=== PATIENT | male | born 1935 | race Caucasian/White ===

== ENCOUNTER → 2019-05-04 10:38 | Outpatient (CLI) | payer MEDICARE, BC, SELFPAY ==
--- NOTE | 2019-05-04 | DI.RAD.S_ITS ---
PROCEDURE: FL BARIUM SWALLOW INDICATIONS: COUGH COMPARISON: None. FINDINGS: Function: There is generally normal esophageal peristalsis with only a mild degree of tertiary contractions within the distal esophagus. There was minimal elicited gastroesophageal reflux. There is normal transit of a calibrated barium tablet through the esophagus into the stomach. Morphology: Air-contrast images demonstrate normal mucosal morphology. Single contrast views show no esophageal strictures, extrinsic mass effects, or diverticula. Limited images of the stomach demonstrate normal appearance. IMPRESSION: The degree of gastroesophageal reflux currently present at time of this examination is minimal. The patient reported prior fundoplication and there is no evidence for wrap dehiscence. Note is made of a mild degree of episodic tertiary contractions within the distal esophagus, but no esophageal stricture or mass lesion is found. Dictated by: Luis Alfredo Hamlin M.D. on 05/04/2019 at 11:39 Approved by: Luis Alfredo Hamlin M.D. on 05/04/2019 at 11:40
== END ==
PROVIDERS: PCP Internal Medicine; Visit Provider Otolaryngology
DX: R05 Cough (principal); K21.9 Gastro-esophageal reflux disease without esophagitis
CPT/HCPCS: 74220

== ENCOUNTER → 2020-12-24 11:27 | Outpatient (CLI) | payer MEDICARE, BC, SELFPAY ==
[2020-12-24 13:09] LABS: COVID19 -Nasal RAPID Negative (Negative)
== END ==
PROVIDERS: PCP Internal Medicine; Visit Provider Physician Assistant
DX: Z01.812 Encounter for preprocedural laboratory examination (principal); Z20.822 Contact with and (suspected) exposure to COVID-19
CPT/HCPCS: 87635; C9803

== ENCOUNTER → 2020-12-26 10:01 | Outpatient (CLI) | payer MEDICARE, BC, SELFPAY ==
--- NOTE | 2020-12-26 15:04 | P.PCN_ITS ---
Cardiac Stress Test Report Referral & Results Date Patient Seen: 12/26/20 Time Patient Seen: 15:04 Indication: Chest pain Rest ECG: Atrial fibrillation Procedure Note: After Lexiscan injection, had minimal dyspnea 2/10 sternal chest pain 2:41 mins post Lexiscan injection which increased to 4/10 at 3:00 post Lexiscan injection; chest pain resolved 4:01 into recovery wi th no ECG changes No ectopy Impression: Positive Lexiscan stress test Nuclear images pending Please note: Actual ECG tracings can be found in the PACS system.
--- NOTE | 2020-12-26 19:36 | DI.NM.S_ITS ---
DATE OF SERVICE: 12/26/2020 PROCEDURE: Pharmacological perfusion study. INDICATIONS: Atrial fibrillation, chest pain with known history of coronary artery disease status post LAD and PDA stent in the past. RADIOPHARMACEUTICAL: 27.0 millicurie technetium-99m Myoview IV was injected at stress and 24.3 millicurie technetium-99m Myoview IV was injected at rest. CARDIAC STRESS: The patient underwent IV Lexiscan perfusion study under the supervision of an attending staff as per standard protocol. The patient remained hemodynamically stable. During Lexiscan, patient felt dyspnea and chest discomfort, which got resolved in 4 minutes in recovery. Baseline rhythm was atrial fibrillation with low-voltage complexes with some nonspecific ST-T changes. During stress, patient remained in AFib without any new convincing ischemic changes. There were no new significant arrhythmias. RAW DATA: There is increased subdiaphragmatic activity. GATED STUDY: Stress LV ejection fraction is 72 percent without any obvious wall motion abnormalities. Resting end-diastolic volume 98 mL. TID ratio 0.95, which is within normal limits. Lung/heart ratio 0.33, which is within normal limits. MYOCARDIAL PERFUSION: Stress supine images revealed minimally decreased perfusion of the basal inferolateral wall, which got resolved during prone images. No convincing ischemia or infarction pattern seen. CONCLUSION: This is a normal myocardial perfusion study with evidence of diaphragmatic tissue attenuation artifact which got resolved during prone images. Preserved left ventricular function. Baseline atrial fibrillation with controlled ventricular rate. Overall, this is a low-risk myocardial perfusion study. Lan Gutiérrez - Allan/nakul doc#: [id number]/job#: [id number] dd: 12/26/2020 17:16:00 dt: 12/26/2020 18:11:00 DICTATING MD/COPIES TO: Zenaida Hernandes MD COPIES MNE: NIGEL;
== END ==
PROVIDERS: PCP Internal Medicine; Referring Provider Internal Medicine; Visit Provider Internal Medicine
DX: R07.9 Chest pain, unspecified (principal); I48.91 Unspecified atrial fibrillation
CPT/HCPCS: 78452; 93017; A9502; J2785

== ENCOUNTER → 2022-04-02 11:27 | Outpatient (CLI) | payer MEDICARE, BC, SELFPAY ==
--- NOTE | 2022-04-02 | DI.CT.S_ITS ---
PROCEDURE: CT UE LT WO CON INDICATIONS: Pain in left shoulder TECHNIQUE: Noncontrast 1-1.5 mm thick sections acquired from the acromioclavicular joint to the inferior scapula, with coronal and sagittal reformatting. COMPARISON: [facility], CR, XR SHOULDER 2+ VIEWS LEFT, 10/30/2020, 9:10. [facility], CR, XR SHOULDER 2+ VIEWS LEFT, 03/26/2022, 13:15. FINDINGS: Image quality: Excellent. Bones: There is moderate to severe glenohumeral joint osteoarthritic changes with near complete loss of joint space, extensive subchondral sclerosis and cyst formation as well as prominent marginal osteophyte formation. Mild glenohumeral joint osteoarthritic changes are seen with joint space narrowing and subchondral sclerosis. No fracture or dislocation. No suspicious intraosseous lesion. Visualized left upper to mid ribs are intact. Visualized thoracic spine vertebral bodies show no acute compression fractures. Soft tissues: Mild supraspinatus muscle atrophy is noted on sagittal images. There is no full-thickness rotator cuff tendon rupture. No intra-articular loose bodies or abnormal soft tissue calcifications. No left axillary lymphadenopathy is seen. Visualized left lung field is clear. Heart size is enlarged, no pericardial effusion. Moderate atherosclerotic calcifications are seen in coronary vessels. IMPRESSION: 1. 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 No fracture or dislocation. No suspicious intraosseous lesion. 2. No full-thickness rotator cuff tendon rupture. No significant joint effusion or intra-articular loose bodies. No abnormal soft tissue calcifications. Mild supraspinatus muscle atrophy. Dictated by: Gerson Padilla M.D. on 04/03/2022 at 23:00 Approved by: Gerson Padilla M.D. on 04/03/2022 at 23:04
== END ==
PROVIDERS: PCP Internal Medicine; Referring Provider Orthopaedic Surgery; Visit Provider Orthopaedic Surgery
DX: M19.012 Primary osteoarthritis, left shoulder (principal); M25.512 Pain in left shoulder
CPT/HCPCS: 73200

== ENCOUNTER → 2022-05-31 10:34 | Outpatient (CLI) | payer MEDICARE, BC, SELFPAY ==
[2022-05-31 11:53] LABS: Add Manual Diff / Slide Review NO; Basophils Absolute Auto 0 /uL (0-100); Basophils Percent Auto 0.6 % (0-2); Eosinophils Absolute Auto 200 /uL (0-450); Eosinophils Percent Auto 3.2 % (2-4); Hemoglobin 12.5 g/dL (13.5-17.5); Lymphocytes Absolute Auto 900 /uL (1100-4500); Mean Corpuscular HGB Conc 34.7 % (30-36); Mean Corpuscular Hemoglobin 36.1 PG (26-34); Mean Corpuscular Volume 104.2 fL (80-100); Monocytes Absolute Auto 800 /uL (0-900); Monocytes Percent Auto 11.2 % (3-14); Neutrophils Absolute Auto 4800 /uL (1500-7000); Platelet Count 202 X10^3/uL (150-400); Red Blood Cell Count 3.45 X10^6/uL (4.5-5.9); Red Cell Distribution Width 14.1 % (11.6-14.8); White Blood Cell Count 6.7 X10^3/uL (4.5-11.0)
[2022-05-31 12:09] LABS: BUN Creatinine Ratio 25.7 (6-22); Blood Urea Nitrogen 27 mg/dL (9-20); Calcium 8.8 mg/dL (8.4-10.2); Carbon Dioxide 29 mmol/L (22-32); Chloride 105 mmol/L (98-107); Estimated Glomerular Filt Rate > 60 mL/min (>60); Glucose 71 mg/dL (80-110); HEMOLYSIS < 15 (0-50); Potassium 4.2 mmol/L (3.4-5.1); Sodium 140 mmol/L (137-145)
== END ==
PROVIDERS: PCP Internal Medicine; Referring Provider Orthopaedic Surgery; Visit Provider Orthopaedic Surgery
DX: Z01.818 Encounter for other preprocedural examination (principal); Z01.812 Encounter for preprocedural laboratory examination
CPT/HCPCS: 36415; 80048; 85025; 93005

== ENCOUNTER → 2022-09-13 13:44 | Outpatient (CLI) | payer MEDICARE, BC, SELFPAY ==
[2022-09-13 17:32] LABS: COVID19 -Nasal RAPID Negative (Negative)
== END ==
PROVIDERS: PCP Internal Medicine; Referring Provider Orthopaedic Surgery; Visit Provider Orthopaedic Surgery
DX: Z20.822 Contact with and (suspected) exposure to COVID-19 (principal)
CPT/HCPCS: 87635; C9803

== ENCOUNTER 2022-09-15 09:19 | Inpatient (IN) | payer MEDICARE, BC, SELFPAY ==
[2022-09-14 08:16] VITALS: BMI 25.7
[2022-09-15] VITALS (15 sets, daily range): BP systolic 107–164; BP diastolic 65–103; PULSE 14–100; RESP 12–18; TEMP 35.9–36.7; O2SAT 92–99; BMI 25.7
--- NOTE | 2022-09-15 06:00 | DI.RAD.S_ITS ---
PROCEDURE: XR SHOULDER LT MIN 2V INDICATIONS: prosthesis placement TECHNIQUE: 1 views of the shoulder were acquired. COMPARISON: None. FINDINGS: Bones: No fractures or dislocations. No suspicious bony lesions. Visualized ribs appear intact. Left shoulder arthroplasty is present. Postsurgical changes are present. Hardware is intact Soft tissues: No suspicious soft tissue calcifications. IMPRESSION: Left shoulder arthroplasty changes. Dictated by: Concha Wei M.D. on 09/15/2022 at 14:11 Approved by: Concha Wei M.D. on 09/15/2022 at 14:11
[2022-09-15] MEDS: CELECOXIB 200 MG CAPSULE PO (10:08)
[2022-09-15] MEDS: PREGABALIN 75 MG CAPSULE PO (10:08)
--- NOTE | 2022-09-15 10:08 | PM.PREOP ---
Pre-operative Note COVID-19 COVID-19 status: Negative Result date/Date tested (Pos, Neg/Pending): 09/13/22 Interval Note History & Physical reviewed/Exam performed by Physician: Yes Changes to H&P: No
[2022-09-15] MEDS: ACETAMINOPHEN 325 MG TABLET 975 MG PO (10:09)
[2022-09-15] MEDS: LACTATED RINGERS 1,000 ML 84 ML IV ×2 (10:11→12:20)
--- NOTE | 2022-09-15 10:46 | SUR.PREOP ---
Time Out- 1027 Block start time [1028] . Monitoring initiated and maintained throughout procedure. Patient remained stable throughout procedure, no adverse reactions noted. Block end time [1040].
[2022-09-15] MEDS: CEFAZOLIN 2 GM/100 ML PREMIX 100 ML IV ×2 (10:47→19:11)
--- NOTE | 2022-09-15 11:17 | SUR.OPER ---
Beach chair with Tash/Yulia shoulder positioner. Lower body on padded OR bed. Head in foam padded head cradle, secured with straps. Non-operative arm secured <90 degrees abduction. Pillow under knees. Safety belt at thigh. Gelpads underneath pt's buttocks and heels
[2022-09-15] MEDS: TRANEXAMIC ACID 1,000 MG VIAL 1000 MG INJ ×2 (11:28→12:30)
[2022-09-15] MEDS: BUPIVACAINE 0.25% (PF) 30 ML, EPINEPHrine 0.3 MG INJ (12:30)
--- NOTE | 2022-09-15 12:50 | PM.OP.1 ---
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 The CT scan has shown severe erosion of the glenoid, necessitating reverse total shoulder replacement. Non-operative management has failed and the patient has requested total shoulder replacement. The risks, benefits and alternatives to surgery were discussed with the patient prior to proceeding. Risks discussed included, but were not limited to, failure to relieve pain, stiffness, infection, nerve damage, deep venous thrombosis, pulmonary embolism, stroke, coma, heart attack, permanent paralysis and , as well as the potential need for eventual revision of the prosthetic. Surgeon: Vincenzo Murphy Privacy Officer: Marques Ta Click Yes if Unassisted: No Anesthesia Type: General, Peripheral nerve block and Local Operative Notes Findings: Severe osteoarthritis of the left shoulder with significant posterior superior erosion of the glenoid Closure Type: primary Specimen(s): none sent Prosthetic devices, grafts, tissues, transplants, or devices: Implants used in this procedure manufactured by the [employer] and included a [employer] total shoulder system with a 24 mm base plate with a 20 degree full augment and a 30 mm post extension, a single 32 mm nonlocking screw was placed in the inferior hole. Three locking screws measuring 24, 24 and 20 mm were placed in the 3 remaining holes. There was a 36 mm +4 lateralized/24 glenosphere with a locking screw. There was a size 10 humeral stem with a 36 neutral cup and a 36+ 3 liner. Applied: implant(s) Estimated Blood Loss (mL): 200 Blood products transfused: none Procedure in detail: The patient was seen in the preoperative area where they identified the left shoulder as the operative site and this was marked with my initials. They received preoperative antibiotics and underwent the induction of an interscalene block. They were taken to the operating room and placed on the operating room table in a supine position with the underwent the induction of a general anesthetic. There were then repositioned in the ?beach chair? position using a dedicated positioner. All pressure points were well padded. The knees were slightly bent to prevent tension on the sciatic nerves. A timekeeper supervisor-out was performed. The left arm was prepared from the fingertips to the base of the neck with ChloraPrep in the usual fashion and draped through sterile drapes. An approximately 15 cm incision was created starting at the clavicle just above the coracoid and going to the deltoid insertion. The deltopectoral interval was used to access the shoulder taking the vein to the medial side. The vein was unfortunately injured during the case and cauterized. The upper 1 cm of the pectoralis major was released. The biceps tendon was identified and used as a guide to releasing the remaining subscapularis. The biceps itself was tenodesed over the pectoralis tendon using a suture. The subscapularis was tagged for later repair. The shoulder was dislocated and a proximal humeral osteotomy performed using an intramedullary guide. A proximal humeral protector was then placed. Retractors were placed access the glenoid. A 360 degree release was performed of the remaining subscapularis with care being taken to protect the axillary nerve. The soft tissues were removed circumferentially around the glenoid. The guide was used to drill the guide hole in the center of the inferior glenoid. The 20 degree angled Reamer was used over the guide pin. The trial glenoid was applied and appeared to have good support. The glenoid was marked to allow appropriate orientation of the augment. The glenoid prosthetic was assembled on the back table and impacted into position. The inferior hole was filled with a nonlocking screw to provide compression. The remaining peripheral locking screws were then placed through the appropriate guide. A trial glenoid head was applied. We then turned our attention to the humerus. The proximal humeral protector was removed. Broaching was then performed beginning with a small broach and working up until rotational stability was obtained. The guide for the proximal metaphyseal reamer was then applied and the metaphysis was reamed appropriately. The trial metaphyseal portion of the body was then applied to the broach. Trial reductions were performed and the size of the glenoid head and the cup were optimized. Stability was checked in maximal internal and external rotation and range of motion was checked to allow access to the top of the head, internal rotation to an excess of 50? in the ?scarecrow position? and the ability to reach the groin. The appropriate final prosthetic components were then opened. The glenoid head was impacted into position and checked for rotational and axial stability before placing the set screw. The humeral prosthetic was then impacted into position. The humeral cup was placed. The joint was relocated and irrigated. The subscapularis was repaired to the lesser tuberosity using 2. Ethibond sutures. The deltopectoral interval was reapproximated with 0 Vicryl. Subcutaneous layer was closed with interrupted 3-0 Vicryl and skin with a running 3 0 V lock suture and Dermabond. Subcutaneous tissues were then infiltrated with 12 mL of 0.25% Marcaine for postoperative pain control. An Aquacel Ag dressing was applied and the patient's arm was placed in a sling. The patient was then transferred to the recovery room in good condition having tolerated the procedure well. The assistance of a skilled special event assistant was necessary to provide positioning, retraction to protect vital structures and exposure during this case. A reverse total shoulder is not an operation that can be performed without the services of a skilled special event assistant. The presence of Dr. Cely courtney was necessary for the duration of the case. Complications: none Post-operative Condition: stable Disposition: PACU Plan for aftercare: The patient will be allowed to do pendulum exercises and use his hand in front of his body below shoulder level to lift 1-2 lb. He will start in physical therapy in 6 weeks. He will be admitted to the hospital overnight and likely discharge tomorrow.
--- NOTE | 2022-09-15 12:57 | SUR.PHASEI ---
Received to PACU after general anesthesia. Oral airwayremoved by Dr Hurst on arrival. Airway patent, self maintained. Report from RACHELLE Gonzales and Dr Hurst.
[2022-09-15] MEDS: HYDROCODONE/ACET 5/325 TABLET 1 TAB PO (13:35)
[2022-09-15] MEDS: LACTATED RINGERS 1,000 ML 100 ML IV (15:30)
--- NOTE | 2022-09-15 16:00 | PT.IIE ---
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 Asthma BCC (basal cell carcinoma) (~06/2022) Easy bruisability Enlarged prostate Hearing impaired HLD (hyperlipidemia) HTN (hypertension) Hypothyroid IBS (irritable bowel syndrome) Knee pain Osteoarthritis Presence of Watchman left atrial appendage closure device Rheumatic fever Shingles outbreak (06/15/22) TIA (transient ischemic attack) Physical Therapy Inpatient Evaluation/Re-Eval M1 PT/OT-IP Prior Functional Status Start: 09/15/22 17:02 Freq: NEEDED Status: Active Protocol: Document 09/15/22 16:00 AB (Rec: 09/15/22 17:17 AB [id number]) Medical Review Prior Functional Status Medical History Reviewed Yes Communication able to make needs known Mobility and Gait pt stated that he is modified independent with all mobilities and ambulation without AD indoors but uses a SPC for outdoor mobility Social History Household Members spouse Living Arrangements Apartment/Condo Number of Floors (Floors) Two Floors Number of Stairs To Enter/Railing? 4 steps R rail to enter the house and then has a chair lift to get to main living area of the house Home Environment Standard Height Toilet,Walk in Shower,Built-In Shower Seat Home Equipment Straight Cane,Hand Held Shower ,Grab Bars In Shower Additional Social History Comment spouse is limited to assistance she can provide the pt: has decrease vision and has back problems M2 PT-IP Current Condition Start: 09/15/22 17:02 Freq: NEEDED Status: Active Protocol: Document 09/15/22 16:00 AB (Rec: 09/15/22 17:17 AB [id number]) Physical Therapy Current Condition Current Condition Evaluation Date 09/15/22 Treatment Diagnosis s/p L TSA reverse; difficulty in walking Onset Date 09/15/22 M3 PT-IP Subjective Start: 09/15/22 17:02 Freq: NEEDED Status: Active Protocol: Document 09/15/22 16:00 AB (Rec: 09/15/22 17:17 AB [id number]) Subjective Physical Therapy Visit Type Type Initial Evaluation Visit Start Time 16:00 Visit Stop Time 16:47 Total Visit Minutes 47 Number of DECKHAND SPONGE BOAT Visits 0 Physical Therapy Visit Comments Patient Comments agreeable to do PT Therapy Pain Assessment Pain When Pain Assessed At Rest Pain Present Pain Present Pain Reported Location Left Shoulder Intensity 4 Scale Used Numeric (0 - 10) Pain Management Techniques Distraction,Modification of Treatment,Re-positioning, Timing of Activity with Medications M4 PT-IP Mobility and Gait Start: 09/15/22 17:02 Freq: NEEDED Status: Active Protocol: Document 09/15/22 16:00 AB (Rec: 09/15/22 17:17 [id number]) PT-Bed Mobility Assessment Supine to Sit Supine to Sit Standby Assistance PT-Transfer Assessment Sit to and From Stand Sit to and from Stand Contact Guard Assistance,1 Person Assistance,Use of Upper Extremities Equipment Transfer Assistive Device None,Gait Belt Orthotic/Prosthetic Devices or Brace: Yes Comments Mobility Comments spouse in room with pt. educated pt and spouse regarding shoulder precautions , pendulum, elbow/wrist/hand exercises. pt completed supine to sit SBA . pt can be impulsive and tends to move L shoulder. max A for safety. pt able to sit on EOB SBA. pt requested to use the urinal. CGA for sit to stand and CGA for standing balance without AD while pt uses the urinal. educated spouse on donning/ doffing of sling. completed elbow/wrist/hands exercises. pt still does not have full motor control back on LUE and pendulum held off for now for safety. Spouse don sling on pt with min A from PT and max cues. will need further training. pt ambulated in room without AD CGA with unsteady guarded gait. instructed pt to use SPC and ambulated initially CGA ~ 20 ft but pt is impulsive and has (+) LOB requiring min A for safety. pt sat on EOB. requested to use the urinal again. nurse in room and took over care. caregiver training set up at 930 am with spouse. Gait Assessment Gait Gait Assistance Required: Contact Guard Assist,Minimum Assistance Distance (Feet) 20 Able to Maintain Weight Bearing Status Yes During Gait Assistive Devices Assistive Device None,Gait Belt,Straight Cane Orthotic/Prosthetic Devices or Brace: Yes Gait Deviations General Gait Pattern Ataxic,Decreased Stride Length ,Decreased Feet Clearance,Step -to Gait Factors Limiting Gait Function Factors Limiting Gait Function Decreased Activity Tolerance, Decreased Sensation,Decreased Strength,Difficulty Following Directions,Limited Range of Motion,Pain,Poor Balance,Poor Safety Awareness PT-Balance Assessment Sitting Balance and Reactions Static Sitting Balance Ability Good Dynamic Sitting Balance Ability Good Standing Balance and Reactions Static Standing Balance Ability Fair Dynamic Standing Balance Ability Fair Device Used without AD M5 PT-IP Objective Assessments Start: 09/15/22 17:02 Freq: NEEDED Status: Active Protocol: Document 09/15/22 16:00 AB (Rec: 09/15/22 17:17 AB [id number]) Orientation Orientation/Cognition Level of Alertness Alert Orientation Name Language Function Ability No Deficits Noted Safety Awareness Decreased Safety Awareness Memory Description Short Term Impaired Gross Range of Motion Lower Extremity ROM Assessment Within Functional Limits Strength Lower Extremity Strength Assessment Within Functional Limits Other Assessments Other Other Assessments pt does not have full motor control back on LUE M6 PT-IP Treatment Start: 09/15/22 17:02 Freq: NEEDED Status: Active Protocol: Document 09/15/22 16:00 AB (Rec: 09/15/22 17:17 AB [id number]) Physical Therapy Treatment Exercises Exercises Elbow Flexion/Extension,Wrist ROM,Hand ROM Education Education Provided Precautions,Weight Bearing Status,Post-Op Packet,Safety Brace Education Donning,[place],Patient, Caregiver M7 PT-IP Assessment and Plan Start: 09/15/22 17:02 Freq: NEEDED Status: Active Protocol: Document 09/15/22 16:00 AB (Rec: 09/15/22 17:17 AB [id number]) PT Summary Assessment and Plan Potential Rehabilitation Potential Fair Status of Condition at Evaluation Evolving Summary Impairments Pain,ROM,Strength,Balance, Coordination,Sensation,Tone, Cognition,Bed Mobility, Transfers,Gait,Activity Tolerance Assessment Summary PT requiring CGA to min A with mobility. caregiver training initiated but requires further training. caregiver training set up at 930 am tomorrow. pt also needs to complete stair climbing prior to d/c. will continue to assess progress. Goals Bed Mobility Goal Independent Transfer Goal Independent,Cane Gait Goal Independent,Cane Gait Distance 200 Other Goals improve ambulation without AD 100 ft SBA up/down 4 steps R rail ascending SBA Days to Meet Goals 5 Frequency of Treatment Frequency Of Treatment Twice a Day Treatment Plan Physical Therapy Treatment Plan Bed Mobility Training,Transfer Training,Gait Training, Therapeutic Exercise,Balance Retraining,Post Op Education, Discharge Planning,Hot or Cold Pack,Neuromuscular Re-ed, Coordination Retraining,Manual Therapy Precautions Shoulder Precautions Sling,PROM,Internal Rotation to Body,No External Rotation, No Abduction,Forward Flexion to 90 degrees,Pendulums Other Precautions Per Dr. Murphy note: The patient will be allowed to do pendulum exercises and use his hand in front of his body below shoulder level to lift 1 -2 lb Weight Bearing Status Weight Bearing Status Non-Weight Bearing Allowed Weight Bearing Amount (enter % LUE NWB or #) (%) Recommendations To Nursing Amount of Assist Needed 1 Person Assist Discharge Recommendations PT Discharge Recommendations Home with 02/05 Assist Available,Home Health, Outpatient PT Transportation Needs at Discharge Private Vehicle,Wheelchair/ Cabulance
[2022-09-15] MEDS: OXYCODONE IR 10 MG TABLET PO (16:07)
[2022-09-15] MEDS: TAMSULOSIN 0.4 MG CAPSULE 0.8 MG PO (18:18)
[2022-09-15] MEDS: ACETAMINOPHEN 325 MG TABLET 650 MG PO (18:20)
--- NOTE | 2022-09-15 19:28 | PC.NURSE ---
Pt arrived from PACU, at 1430. A&OX3. Pain well controlled with PRN medications. feeling returned to L hand, shoulder in sling. Aquacel to L shoulder c.d.i PT is voiding and ambulating x1 SBA. PT at bedside reviewing precautions with pt. Continuous monitoring. IVF LR at 100 ml/hr.
[2022-09-15] MEDS: ATORVASTATIN 20 MG TABLET 10 MG PO (20:38)
[2022-09-15] MEDS: METOPROLOL ER 25 MG TABLET 12.5 MG PO (20:38)
[2022-09-15] MEDS: ASPIRIN EC 81 MG TABLET PO (20:38)
[2022-09-15] MEDS: DOCUSATE 100 MG CAPSULE PO (20:38)
[2022-09-15] MEDS: OXYCODONE IR 5 MG TABLET PO (20:39)
--- NOTE | 2022-09-16 00:35 | RT ---
At time of 2129 on 09/15/22, pt was asleep. RT unable to evaluate pt.
[2022-09-16 03:00] VITALS: BP 157/81; PULSE 66; RESP 16; TEMP 36.5; O2SAT 97
[2022-09-16] MEDS: OXYCODONE IR 10 MG TABLET PO (03:04)
[2022-09-16] MEDS: CEFAZOLIN 2 GM/100 ML PREMIX 100 ML IV (03:04)
[2022-09-16] MEDS: ACETAMINOPHEN 325 MG TABLET 650 MG PO ×4 (06:16→23:25)
[2022-09-16] MEDS: PANTOPRAZOLE DR 20 MG TABLET PO (06:16)
[2022-09-16] MEDS: LEVOTHYROXINE 100 MCG TABLET PO (06:16)
[2022-09-16 06:32] LABS: Hematocrit 34.1 % (41-53); Hemoglobin 11.5 g/dL (13.5-17.5)
--- NOTE | 2022-09-16 07:49 | P.DS_ITS ---
History of Present Illness History of Present Illness Date Patient Seen: 09/16/22 Time Patient Seen: 07:50 Chief complaint: OPB Narrative: The history and physical is contained in the chart previously completed note. Please refer to that note for this information. Discharge Providers Provider Date of admission: September 15, 2022 Discharge Date: 09/16/22 Primary care physician: Kurt Sharma MD Consults: 09/15/22 14:29 Consult to Discharge Planning Routine Comment: Consult to Physical Therapy Evaluate & Treat Comment: Physician Instructions: Pendulums only Discharge provider: Vincenzo Murphy MD Summary Hospital Course Discharge Diagnosis: 1. 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 Post hemorrhagic anemia Hospital Course: The patient was admitted to the hospital and taken directly to the operating room on September 15, 2022 where he underwent a left reverse total shoulder repl acement with an augmented glenoid prosthesis due to significant erosion of the glenoid. On postoperative day 1 he was comfortable with good pain control. He did have a mild post hemorrhagic anemia that should resolve with normal diet and the iron he takes routinely. It is anticipated he will be ready to discharge later this morning. Status at Discharge Cognitive/behavioral status at discharge: at baseline, oriented Functional status at discharge: independent ambulation Overall status at discharge: patient is progressing back to baseline Time Spent with Patient Time spent: Less than 30 minutes Exam Vital Signs (past 8 hours): - 09/16/22 03:00 Temperature 97.7 F Pulse Rate 66 Respiratory Rate 16 Blood Pressure 157/81 H Pulse Oximetry 97 Oxygen Flow Rate 0 Oxygen Delivery Method Room Air Oxygen Flow Rate 0 Narrative Exam Narrative: Left shoulder wound is dressed with no significant drainage on the bandage. Light touch is intact in the radial, ulnar, median, muscular cutaneous and axillary nerve distribution. He can extend his thumb, abduct his thumb, abduct his fingers and can fire his biceps and deltoid. 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 Asthma BCC (basal cell carcinoma) (~06/2022) Easy bruisability Enlarged prostate Hearing impaired HLD (hyperlipidemia) HTN (hypertension) Hypothyroid IBS (irritable bowel syndrome) Knee pain Osteoarthritis Presence of Watchman left atrial appendage closure device Rheumatic fever Shingles outbreak (06/15/22) TIA (transient ischemic attack) Surgical History (Updated 06/28/22 @ 10:35 by Maribell Garcia RN) History of Zana fundoplication Hx of heart artery stent Social History household members: spouse Smoking Status: Former smoker alcohol intake: current Discharge Assessment & Plan Assessment and Plan Assessment: Stable postop day 1 after reverse total shoulder replacement for left shoulder osteoarthritis with significant glenoid deformity. He is stable from the standpoint of pain control. He has a mild post hemorrhagic anemia superimposed upon his pre-existing anemia which should be addressed with ongoing use of the iron he takes at baseline. It is anticipated he will be ready for discharge today. Plan of Treatment: Discharge to home with follow-up in my office in 10-14 days. Discharge prescription for oxycodone has been sent to the pharmacy for him. He has been instructed in the use of low-dose aspirin for DVT prophylaxis. He has been instructed to continue his baseline use of Tylenol and anti-inflammatories for pain control. Discharge Plan Discharge Plan Patient Disposition: Home Discharge orders & Medications Discharge Orders: Discharge (Order); Ordered 09/16/22 Ordered By: Vincenzo Murphy Prescriptions: New aspirin 81 mg Tablet,Delayed Release (Dr/Ec) 81 mg PO BID Qty: 84 0RF oxycodone 5 mg Tablet 5 mg PO Q4H PRN (Reason: Pain, Moderate (4-6)) Qty: 40 0RF Continued furosemide 40 mg Tablet 40 mg PO DAILY acetaminophen 500 mg Tablet 1,000 mg PO Q6H PRN (Reason: Pain) ferrous sulfate 325 mg (65 mg iron) Tablet 325 mg PO DAILY naproxen sodium [Aleve] 220 mg Capsule 220 mg PO BID PRN (Reason: Pain) metoprolol succinate 25 mg Tablet Extended Release 24 Hr 12.5 mg PO BEDTIME coenzyme Q10 [Co Q-10] 300 mg capsule 150 mg PO DAILY esomeprazole magnesium [address] for susp in packet 20 mg PO DAILY fluticasone propionate [Allergy Relief (fluticasone)] 50 mcg/actuation spray,suspension 2 spray NASAL DAILY PRN (Reason: Allergies) budesonide 0.5 mg/2 mL suspension for nebulization 2 ml INHALATION DAILY levothyroxine 100 mcg capsule 100 mcg PO DAILY beclomethasone dipropionate [Qvar RediHaler] 80 mcg/actuation HFA aerosol breath activated 1 puff INHALATION BID rosuvastatin [Crestor] 5 mg tablet 5 mg PO QPM tamsulosin 0.4 mg capsule 0.8 mg PO QPM Discontinued aspirin [Adeel Low Dose Aspirin] 81 mg tablet,delayed release (DR/EC) 81 mg PO DAILY Follow up/Referrals: Kurt Sharma MD [Primary Care Provider] - Vincenzo Murphy MD [Physician] - As previously scheduled Diet/Activity/Treatments Diet: Diet as Tolerated and Regular Activity: You may use your left hand in front of your body below shoulder level to lift 1-2 lb maximum. Cold/Heat Therapy: You may apply ice to the left shoulder for 15 minutes every hour as needed for pain control. Skin/Wound/Dressing Care Report to your healthcare provider any signs of infection, such as:: chills, fever, night sweats, increased pain, unusual drainage and unusual redness Dressing: Leave the dressing in place until your postoperative follow-up. You m ay shower with the dressing in place. If the central strip becomes saturated with either water or blood, please call the office to have it evaluated. Visit Report/Discharge Packet Instructions: DI for Shoulder Replacement Stand Alone Forms: Surgery Discharge Discharge Data Primary Care Provider: Kurt Sharma Attending Provider: Vincenzo Murphy Quality VTE Deep Vein Thrombosis/Pulmonary Embolism Present on Admission: No
--- NOTE | 2022-09-16 09:14 | CM.DANOTE ---
Addendum entered by Zandra Martinez R.N. 09/16/22 15:16: DCP Cont: Spoke with PT, pt recommending / assist vs SNF. DCP spoke with family and pt and provided them with the options of going home with daughter assisting and then finding caregivers vs SNF placement. PT wanting to work with pt tomorrow to determine if pt safe enough to go home. DCP to inform RN. DCP sent referral to [facility] and it was determined that he could be accepted on Tuesday if it is deemed necessary. DCP to continue to follow case. Zandra Martinez RN/HUGO Original Note: DCP Assessment: Payor confirmed: Medicare and [facility] PCP confirmed: Kurt Sharma MD Pt is an 87 y.o. M who presented to the hospital for a scheduled rotator cuff surgery with Dr. Murphy. Pt brought up to the AC unit for further evaluation and management of surgical procedure. DCP met with pt this morning to discuss discharge needs. Pt sitting up on side of the bed eating breakfast. DCP introduced herself and role. Pt lives with his spouse, Mine, in a condo with a stair walker, in [place]. Pt states that he is fairly independent at baseline and still drives POV. Pt states that he occasionally uses a cane to ambulate if he is walking long distances, such as in the grocery store. Pt denies needing any resources at this time. Pt states therapy will be there at 0930 to work with him prior to his discharge. Pt states his will pick him up upon discharge. Whiteboard updated and instructed to call. Pt thankful for discussion. P: Anticipate discharge home via spouse POV today after PT. Zandra Martinez RN/HUOG Discharge Planning/Care Management Advanced directive, confirm from FAMILY Start: 09/15/22 16:06 Freq: Q24H Status: Active Protocol: Document 09/15/22 19:00 MW (Rec: 09/15/22 23:01 MW [id number]) Advance Directive, confirm on record Time 19:00 Person contacted pt Copy received No CM Discharge Assessment Start: 09/16/22 09:13 Freq: Status: Active Protocol: Document 09/16/22 09:14 AJ (Rec: 09/16/22 09:14 AJ [id number]) Discharge Planning Assessment Assigned Manager Outpatient Zandra Martinez RN/DCP Advance Directives? Yes Advance Directives on File No History Provided By Patient Prior Living Arrangements Apartment/Condo Household Members spouse Type of transporation used prior to Drives own vehicle admit Independent with ADL's Yes Is patient alert and oriented? Yes Caregiver for Another No DME Already Rented / Owned Cane Discharge Plan Home Transportation Arrangement Spouse POV Referrals Initiated None needed Whiteboard Updated in Patient Room with Yes name and ext. # of Manager Outpatient Comment Instructed to call Review Status In Process Please Provide Date Initial DC 09/16/22 Assessment Was Performed Next Review Type Continued Stay Review Pre-Anesthesia Assessment Start: 06/28/22 09:48 Freq: Status: Active Protocol: Document 09/14/22 08:16 CAB (Rec: 06/28/22 10:58 CAB [id number]) Pre-Anesthesia Assessment Patient Information Reviewed Via Phone Assessment Assessment Completed With Patient Diagnostic Results BMP/CMP,CBC,EKG Comment Labs/ECG @ 05/31/22, COVID screen @ 09/13/22-Negative Primary Care Provider Kurt Sharma Seen Specialist in Last 12 Months Yes Specialist Seen Black Leather Buffer,Manager Metal, Orthopedist Primary Language Czech Electronic Warfare Officer Required No Height 175.26 cm Weight 78.925 kg Body Mass Index (BMI) 25.7 Hearing Ability Hard of Hearing,Use of Hearing Aid Visual Assist Glasses Dentition Type Teeth, Natural Present,Teeth, Missing Barriers to Learning Age related,Memory Hx Anesthesia Reactions No Hx Family Anesthesia Reaction No Hx Malignant Hyperthermia No Hx Blood Transfusions No Anesthesia Review Requested No alcohol intake current alcohol intake frequency 0-2 drinks per day Smoking Status Former smoker Tobacco type cigarettes,pipe how long ago did patient quit smoking Quit approx 12 years ago Substance Use Type does not use Pain Present Pain Reported Musculoskeletal Symptoms Abnormal Gait,Difficulty Walking,Joint Pain,Limited Range of Motion History of Falling (Recent or History of No ) Patient is completely paralyzed or No completely immobile Prosthesis or Orthotic Device Cane Mental Status Oriented to own ability Is patient on oxygen? No Does patient have WU/SOB Yes: Asthma Hx Sleep Apnea No Currently Taking a Beta Heather Yes: Metoprolol Can You Climb a Flight of Stairs Without No SOB Hx Chest Pain Yes: Not current Hx SOB Yes Hx Syncope or Dizziness Yes Anti-Coagulant Therapy No Has a Black Leather Buffer Yes: Cardiac clearance visit Black Leather Buffer name Dr. Randhawa Hx Pacemaker/ICD No Pacemaker Rep Required? No Cardiac Clearance Received Yes Comment Cardiac records scanned Diet Type At Home Regular Dysphagia No Gastrointestinal Symptoms Abdominal Pain,Constipation, Diarrhea,Reflux Bladder Pattern Frequency,Urgency Urinary Catheter Present No Hx Urinary Self Catheterization No Diabetes No Presence of External or Internal Medical Yes: Watchman, cardiac stent x Devices 3, Watchman device Have you had any close contact with No someone diagnosed with COVID-19? Received a COVID vaccine? Yes Received all doses? Yes Marital Status Lives With spouse Current Living Arrangements Apartment/[employer] Support System Spouse Does the Patient Have Assistance After Yes Surgery Patient Discharge Plan Description Return Home Comment Pt advised overnight length of stay per surgeon office Feels Safe in Current Environment Yes Been Physically Hurt or Threatened By a No Person in Current Environment Do you have thoughts of harming yourself None or others? Are you currently considering suicide? No Do you have a plan to hurt yourself or No Plan others? Do You Have Any Spiritual Beliefs That No May Affect Your HC Choices? Do You Have Any Cultural Practices That No May Affect Your HC Choices? Comment Sikhism Who Can We Speak to About Patient's Care Family, friends Identifying Code for Release of Patient Declines to issue Information Health Care Proxy/Next of Kin Mine () Health Care Proxy Emergency Contact Name Mine () Emergency Contact Advance Directives? Yes Advance Directives on File No Requested Patient Bring Advanced Yes Directives DOS Power of Medical Asst Yes Power of Medical Asst Name Mine () Power of Medical Asst PAC Instructions Durable medical equipment, Medications to take/avoid, Nasal antibiotic,No ETOH/ petroleum product on skin DOS, NPO,Pre-surgical wash,Sturdy shoes/comfortable clothes,Do not bring valuables and remove jewelry
[2022-09-16] MEDS: DOCUSATE 100 MG CAPSULE PO ×2 (09:34→21:06)
[2022-09-16] MEDS: ASPIRIN EC 81 MG TABLET PO ×2 (09:34→21:07)
[2022-09-16] MEDS: OXYCODONE IR 5 MG TABLET PO ×4 (09:34→23:25)
[2022-09-16] MEDS: FERROUS SULFATE 325 MG TABLET PO (09:34)
[2022-09-16] MEDS: FUROSEMIDE 40 MG TABLET PO (09:34)
[2022-09-16] MEDS: BUDESONIDE 0.5 MG/2 ML NEB INH ×2 (09:36→20:49)
[2022-09-16 09:48] VITALS: PULSE 46; RESP 14; O2SAT 96
--- NOTE | 2022-09-16 12:15 | PT.IPTN ---
Current Diagnoses Primary osteoarthritis, left shoulder (09/15/22) Unspecified rotator cuff tear or rupture of left shoulder, not specified as traumatic (09/15/22) Surgery Performed Operation Date: 09/15/22 11:45 Actual Procedures p Total Shoulder Arthroplasty - Reverse(Left) - Vincenzo Murphy MD Physical Therapy Treatment Note M2 PT-IP Current Condition Start: 09/15/22 17:02 Freq: NEEDED Status: Active Protocol: Document 09/16/22 12:23 SP (Rec: 09/16/22 13:53 SP [id number]) Physical Therapy Current Condition Current Condition Evaluation Date 09/15/22 Treatment Diagnosis s/p L TSA reverse; difficulty in walking Onset Date 09/15/22 M3 PT-IP Subjective Start: 09/15/22 17:02 Freq: NEEDED Status: Active Protocol: Document 09/16/22 12:23 SP (Rec: 09/16/22 13:53 SP [id number]) Subjective Physical Therapy Visit Type Type Treatment Note Visit Start Time 10:27 Visit Stop Time 12:15 Total Visit Minutes 62 Notes Pt seen split tx for time rest recovery, seen: [id number], [id number]. KIN Gutiérrez supported WEIGHING STATION OPERATOR Filomena and pt including physical/education during caregiver training with initial arrival. Split tx due to change in caregiver training with daughter after provided pt allowed rest in chair tiring recovery. Number of WEIGHING STATION OPERATOR Visits 1 Physical Therapy Visit Comments Patient Comments agreeable to do PT Therapy Pain Assessment Pain Present Pain Present Pain Reported Location Left Shoulder Scale Used stated stated L shld uncomfortable/ not idenitify scale rating Description Aching Pain Behaviors Facial Grimacing Pain Management Techniques Distraction,Modification of Treatment,Re-positioning, Timing of Activity with Medications M4 PT-IP Mobility and Gait Start: 09/15/22 17:02 Freq: NEEDED Status: Active Protocol: Document 09/16/22 12:23 SP (Rec: 09/16/22 13:53 SP [id number]) PT-Bed Mobility Assessment Supine to Sit Supine to Sit Standby Assistance Sit to Supine Sit to Supine Standby Assistance Scooting Scooting to Edge of Bed Standby Assistance PT-Transfer Assessment Sit to and From Stand Sit to and from Stand Contact Guard Assistance, Minimal Assistance,1 Person Assistance,Use of Upper Extremities Equipment Transfer Assistive Device None,Gait Belt,Straight Cane Orthotic/Prosthetic Devices or Brace: Yes Transfers Transfer Destination Bed,Chair Transfer Technique pt ambulated using SPC Transfer Ability Level of Assist Contact Guard Assistance, Minimal Assistance,1 Person Assistance,Use of Upper Extremities Comments Mobility Comments Pt elevated supine when arrived. Completed elevated supine>sit to R EOB, scoot self SBA using RUE. Provided caregiver education to pt/ / daughter doff/don sling properly, min cues for proper fit/positioning. Education/ review post op exercises: pendulum seated good response painfree feels good, not sure can do standing, hand/wrist/ elbow flexion exercises w/ use HOs for review. and pt felt more confident. donned gait belt with max cues . Sit>stand Min A with cues push off bed RUE with SPC in hand via SPTA with pt use legs posterior lean into bed to come to standing, pt progress gait use SPC, CG- Min A 30 ft across room to chair, unsteady balance with lateral over trunk wt shift, scissor step at time with SPTA. Instructed pt safe sit in chair, demonstrated quick descent/ flopped into chair initially, further education on STS safe, mod cues push off chair arm RUE/ and hand over hand safety ed for RUE reach back with SPC in hand to slow descent chair, improved but still retro lean descent. Let pt rest inchair. Extra time spent discussion with family anatomy of reverse shoulder and safety risk for falls at this time recommending / and caregiver with daughter assist at home HHPT vs SNF due to LOB and unsteady gait. Notified nursing/care mgt. Returned CGT with daughter including gait belt/transfers w/pt SPC and gait further distance 40 ft total into hallway and back to chair, little trunk sways CGA w/SPC but no LOB, cues for increase WBOS for stability, improvement. Pt continue require cues for reaching back for self support descend safely into chair. Pt was left in chair/chair all needs in reach before left. Notified nursing and case mgt safety concern with balance and SPC, unable to assist pt due to self back problems and uses walking stick for balance problems unable to assist pt. Daughter stated can stay with parents for 24-48 hrs and if care mgt can get a list caregivers to call to get extra assistance to stay with pt like this info vs going to SNF, unsure if will be covered by insurance. Gait Assessment Gait Gait Assistance Required: Contact Guard Assist,Minimum Assistance Distance (Feet) 70 Able to Maintain Weight Bearing Status Yes During Gait Assistive Devices Assistive Device None,Gait Belt,Straight Cane Orthotic/Prosthetic Devices or Brace: Yes Gait Deviations General Gait Pattern Antalgic,Decreased Stride Length,Decreased Feet Clearance,Lateral Trunk Lean, Wide Based Gait Factors Limiting Gait Function Factors Limiting Gait Function Decreased Activity Tolerance, Decreased Sensation,Decreased Strength,Difficulty Following Directions,Limited Range of Motion,Pain,Poor Balance,Poor Safety Awareness Comments Gait Comments WBOS initially in standing Min A, trunk sways gait across room w/ SPC noted occasional scissor stepping, LOB x1 Min A for trunk support for recovery by SPTA. Cued increase WBOS, core facilitation, noted proper sequencing SPC with RLE, cued slower small stepping during pivot turns awareness of stability. Stair Climbing Assessment Comments Stair Climbing Comments no stairs need to assess, not entering through garage (4 stairs), now plan enter into front door flush threshold and use seated lift chair to ascend staircase to main floor . PT-Balance Assessment Sitting Balance and Reactions Static Sitting Balance Ability Good Dynamic Sitting Balance Ability Good Standing Balance and Reactions Static Standing Balance Ability Poor Dynamic Standing Balance Ability Poor Device Used SPC M5 PT-IP Objective Assessments Start: 09/15/22 17:02 Freq: NEEDED Status: Active Protocol: Document 09/15/22 16:00 AB (Rec: 09/15/22 17:17 AB [id number]) Orientation Orientation/Cognition Level of Alertness Alert Orientation Name Language Function Ability No Deficits Noted Safety Awareness Decreased Safety Awareness Memory Description Short Term Impaired Gross Range of Motion Lower Extremity ROM Assessment Within Functional Limits Strength Lower Extremity Strength Assessment Within Functional Limits Other Assessments Other Other Assessments pt does not have full motor control back on LUE M6 PT-IP Treatment Start: 09/15/22 17:02 Freq: NEEDED Status: Active Protocol: Document 09/16/22 12:23 SP (Rec: 09/16/22 13:53 SP [id number]) Physical Therapy Treatment Exercises Exercises Elbow Flexion/Extension,Wrist ROM,Hand ROM Education Education Provided Precautions,Weight Bearing Status,Safety Brace Education [place],Patient, Caregiver M7 PT-IP Assessment and Plan Start: 09/15/22 17:02 Freq: NEEDED Status: Active Protocol: Document 09/16/22 12:23 SP (Rec: 09/16/22 13:53 SP [id number]) PT Summary Assessment and Plan Potential Rehabilitation Potential Fair Status of Condition at Evaluation Evolving Summary Impairments Pain,ROM,Strength,Balance, Coordination,Sensation,Tone, Cognition,Bed Mobility, Transfers,Gait,Activity Tolerance Progress Towards Goals Slow Progress due to Pain,Slow Progress due to Activity Tolerance,Slow Progress - Other Assessment Summary pt SBA for bed mobilitiy, CG- Min A for transfers/gait w/ SPC in RUE due to unstable during gait. unable assist pt due to backand unable problems. Min/Mod cues for don/doff sling, post op ex . Will continue to assess progress. Recommending 02/05 assist daughter/ paid caregivers vs SNF for safety decreased stability gait w/ SPC. NWB LUE at this time. Goals Bed Mobility Goal Independent Transfer Goal Independent,Cane Gait Goal Independent,Cane Gait Distance 200 Other Goals improve ambulation without AD 100 ft SBA up/down 4 steps R rail ascending SBA Days to Meet Goals 5 Frequency of Treatment Frequency Of Treatment Twice a Day Treatment Plan Physical Therapy Treatment Plan Bed Mobility Training,Transfer Training,Gait Training, Therapeutic Exercise,Balance Retraining,Post Op Education, Discharge Planning,Hot or Cold Pack,Neuromuscular Re-ed, Coordination Retraining,Manual Therapy Other Recommendations and Next Treatment transfers, further gait w/ SPC Focus / LRAD, balance testing for safe mobility with use SPC. Precautions Shoulder Precautions Sling,PROM,Internal Rotation to Body,No External Rotation, No Abduction,Forward Flexion to 90 degrees,Pendulums Brace sling LUE Other Precautions Per Dr. Murphy note: The patient will be allowed to do pendulum exercises and use his hand in front of his body below shoulder level to lift 1 -2 lb Weight Bearing Status Weight Bearing Status Non-Weight Bearing Allowed Weight Bearing Amount (enter % LUE NWB or #) (%) Recommendations To Nursing Amount of Assist Needed 1 Person Assist Discharge Recommendations PT Discharge Recommendations Home with 02/05 Assist Available,Home Health,SNF Rehab,Home vs SNF Transportation Needs at Discharge Private Vehicle,Wheelchair/ Cabulance
--- NOTE | 2022-09-16 12:45 | CM.DPNOTE ---
Faxed referral to [facility] per Zandra. Haley Minaya CM Assist.
--- NOTE | 2022-09-16 14:56 | PT.IPTN ---
Current Diagnoses Primary osteoarthritis, left shoulder (09/15/22) Unspecified rotator cuff tear or rupture of left shoulder, not specified as traumatic (09/15/22) Surgery Performed Operation Date: 09/15/22 11:45 Actual Procedures p Total Shoulder Arthroplasty - Reverse(Left) - Vincenzo Murphy MD Physical Therapy Treatment Note M2 PT-IP Current Condition Start: 09/15/22 17:02 Freq: NEEDED Status: Active Protocol: Document 09/16/22 14:22 SP (Rec: 09/16/22 17:27 SP [id number]) Physical Therapy Current Condition Current Condition Evaluation Date 09/15/22 Treatment Diagnosis s/p L TSA reverse; difficulty in walking Onset Date 09/15/22 M3 PT-IP Subjective Start: 09/15/22 17:02 Freq: NEEDED Status: Active Protocol: Document 09/16/22 14:22 SP (Rec: 09/16/22 17:27 SP [id number]) Subjective Physical Therapy Visit Type Type Treatment Note Visit Start Time 14:22 Visit Stop Time 14:56 Total Visit Minutes 34 Notes and daughter in room, observed tx. KIN Gutiérrez provided assist including education to [employer] and pt during tx, under direct supervision and direction of [employer] Filomena. Number of [employer] Visits 2 Physical Therapy Visit Comments Patient Comments Pt agreeable to working with therapy. Therapy Pain Assessment Pain Present Pain Present Pain Reported Location Left Shoulder Scale Used L shld little discomfort Description Aching Pain Behaviors Facial Grimacing Pain Management Techniques Distraction,Modification of Treatment,Re-positioning, Timing of Activity with Medications M4 PT-IP Mobility and Gait Start: 09/15/22 17:02 Freq: NEEDED Status: Active Protocol: Document 09/16/22 14:22 SP (Rec: 09/16/22 17:27 SP [id number]) PT-Transfer Assessment Sit to and From Stand Sit to and from Stand Contact Guard Assistance,1 Person Assistance,Use of Upper Extremities Equipment Transfer Assistive Device Gait Belt,Straight Cane Orthotic/Prosthetic Devices or Brace: Yes Transfers Transfer Destination Chair Transfer Technique pt ambulated using SPC Transfer Ability Level of Assist Contact Guard Assistance,1 Person Assistance,Use of Upper Extremities Comments Mobility Comments Pt was seated in chair. Sit< stand CGA pushing from chair, improved no back of legs need support into chair, WBOS coming to standing, support of SPC little sway but no LOB. Instructed static balance activities without RUE support : noted slight trunk sways w/ HT, EC increase retro lean but no LOB discussed no EC at this time not safe, stagger stance HTs trunk sways but no LOB CGA. Progressed gait into hallway w/ SPC cGA for safety, little trunk over wt shifts laterally and pelvic forward positioning/ decreased TA engagement during during trunk wt shift into LE advancement. Dispite gait deviations and no LOB pt is able to self recover CGA. Instructed dynamic gait mobility w/ SPC: head turns, stop quick, no LOB . Total 150 ft, returned to room chair, continues to need cues for reaching back to sit for slow descent CGA, improves slower descent and hip hinge than previous tx. Pt had call light and all needs in reach before left. [employer] discussed with pt and famility improvement in stability but still required CGA, recommending am tx for continued safety gait/ stability. [employer] feels pt will progress recommending home / available assist with and daughter vs SNF. Will continue to assess progress. Gait Assessment Gait Gait Assistance Required: Contact Guard Assist,1 Person Assist Distance (Feet) 150 Able to Maintain Weight Bearing Status Yes During Gait Assistive Devices Assistive Device Gait Belt,Straight Cane Orthotic/Prosthetic Devices or Brace: Yes Gait Deviations General Gait Pattern Antalgic,Decreased Stride Length,Decreased Feet Clearance,Lateral Trunk Lean, Narrow Based Gait Factors Limiting Gait Function Factors Limiting Gait Function Decreased Activity Tolerance, Decreased Strength,Difficulty Following Directions,Limited Range of Motion,Pain,Poor Balance,Poor Safety Awareness Comments Gait Comments Cued increase OCTAVIO during gait hallway, TA for trunk stability, hip hinge/ squat to look at hallway painting to maintain spinal precautions of no bending. Stair Climbing Assessment Comments Stair Climbing Comments no stairs need to assess, not entering through garage (4 stairs), now plan enter into front door flush threshold and use seated lift chair to ascend staircase to main floor . PT-Balance Assessment Sitting Balance and Reactions Static Sitting Balance Ability Good Dynamic Sitting Balance Ability Good Standing Balance and Reactions Static Standing Balance Ability Fair Dynamic Standing Balance Ability Fair Device Used SPC Functional Assessments Other Functional Tests Performed WBOS: HTs- stable NBOS: HTs little trunk sway but no LOB/ self recovery, EC unsteady but no LOB 10 sec Stagger stance: HTs little trunk sways but self recovery. CGA required throughout for safety. M5 PT-IP Objective Assessments Start: 09/15/22 17:02 Freq: NEEDED Status: Active Protocol: Document 09/15/22 16:00 AB (Rec: 09/15/22 17:17 AB [id number]) Orientation Orientation/Cognition Level of Alertness Alert Orientation Name Language Function Ability No Deficits Noted Safety Awareness Decreased Safety Awareness Memory Description Short Term Impaired Gross Range of Motion Lower Extremity ROM Assessment Within Functional Limits Strength Lower Extremity Strength Assessment Within Functional Limits Other Assessments Other Other Assessments pt does not have full motor control back on LUE M6 PT-IP Treatment Start: 09/15/22 17:02 Freq: NEEDED Status: Active Protocol: Document 09/16/22 14:22 SP (Rec: 09/16/22 17:27 SP [id number]) Physical Therapy Treatment Education Education Provided Precautions,Safety M7 PT-IP Assessment and Plan Start: 09/15/22 17:02 Freq: NEEDED Status: Active Protocol: Document 09/16/22 14:22 SP (Rec: 09/16/22 17:27 SP [id number]) PT Summary Assessment and Plan Potential Rehabilitation Potential Fair Status of Condition at Evaluation Evolving Summary Impairments Pain,ROM,Strength,Balance, Coordination,Sensation,Tone, Cognition,Bed Mobility, Transfers,Gait,Activity Tolerance Progress Towards Goals Progressing Toward Goals,Slow Progress due to Pain,Slow Progress due to Activity Tolerance,Slow Progress - Other Assessment Summary CGA during all mobility w/ SPC in RUE. Pt improvement but continues to demonstrate trunk sways unstable in standing static/dynamic w/without SPC support. Pt would benefit from continued skilled inpt rehab to progress stability in standing w/ SPC, training on don/doff sling, post op ex. Recommending continue CGT [id number] in am with /daughter to progress and if able to provide support / available vs SNF for safety. Will continue to assess progress. Goals Bed Mobility Goal Independent Transfer Goal Independent,Cane Gait Goal Independent,Cane Gait Distance 200 Other Goals improve ambulation without AD 100 ft SBA up/down 4 steps R rail ascending SBA Days to Meet Goals 5 Frequency of Treatment Frequency Of Treatment Twice a Day Treatment Plan Physical Therapy Treatment Plan Bed Mobility Training,Transfer Training,Gait Training, Therapeutic Exercise,Balance Retraining,Post Op Education, Discharge Planning,Hot or Cold Pack,Neuromuscular Re-ed, Coordination Retraining,Manual Therapy Other Recommendations and Next Treatment bed mob, transfers, gait w/ Focus SPC, balance activities. Precautions Shoulder Precautions Sling,PROM,Internal Rotation to Body,No External Rotation, No Abduction,Forward Flexion to 90 degrees,Pendulums Brace sling LUE Other Precautions Per Dr. Murphy note: The patient will be allowed to do pendulum exercises and use his hand in front of his body below shoulder level to lift 1 -2 lb Weight Bearing Status Weight Bearing Status Non-Weight Bearing Allowed Weight Bearing Amount (enter % LUE NWB or #) (%) Recommendations To Nursing Amount of Assist Needed 1 Person Assist Discharge Recommendations PT Discharge Recommendations Home with 02/05 Assist Available,Home Health,SNF Rehab,Home vs SNF Transportation Needs at Discharge Private Vehicle,Wheelchair/ Cabulance
[2022-09-16 15:07] VITALS: BP 96/53; PULSE 60; RESP 16; TEMP 36.1; O2SAT 98
[2022-09-16] MEDS: TAMSULOSIN 0.4 MG CAPSULE 0.8 MG PO (17:54)
[2022-09-16 20:00] VITALS: BP 122/65; PULSE 58; RESP 14; TEMP 36.1; O2SAT 99
[2022-09-16 20:49] VITALS: PULSE 99; RESP 18; O2SAT 96
[2022-09-16] MEDS: HYDROMORPHONE 2 MG TABLET PO (21:07)
[2022-09-16] MEDS: ATORVASTATIN 20 MG TABLET 10 MG PO (21:07)
[2022-09-16 22:50] VITALS: BP 96/53; PULSE 60
--- NOTE | 2022-09-17 03:52 | PC.NURSE ---
Pt is AxOx4, needs STA and cooperative. VSS, pt c/o pain on L shoulder and recieved PRN Oxy 5mg x1 as well as his scheduled Tylenol. Pt slept well and voiding fine. No other changes.
[2022-09-17 04:00] VITALS: BP 130/67; PULSE 65; RESP 14; TEMP 36.5; O2SAT 98
[2022-09-17] MEDS: LEVOTHYROXINE 100 MCG TABLET PO (05:26)
[2022-09-17] MEDS: PANTOPRAZOLE DR 20 MG TABLET PO (05:26)
[2022-09-17] MEDS: ACETAMINOPHEN 325 MG TABLET 650 MG PO ×2 (05:26→12:24)
[2022-09-17 08:00] VITALS: PULSE 74; RESP 18; O2SAT 96
[2022-09-17] MEDS: BUDESONIDE 0.5 MG/2 ML NEB INH (08:00)
[2022-09-17 08:47] VITALS: BP 108/67; PULSE 67; RESP 16; TEMP 36.2; O2SAT 99
[2022-09-17] MEDS: OXYCODONE IR 10 MG TABLET PO (09:05)
[2022-09-17] MEDS: ASPIRIN EC 81 MG TABLET PO (09:05)
[2022-09-17] MEDS: FUROSEMIDE 40 MG TABLET PO (09:05)
[2022-09-17] MEDS: FERROUS SULFATE 325 MG TABLET PO (09:05)
[2022-09-17] MEDS: DOCUSATE 100 MG CAPSULE PO (09:07)
--- NOTE | 2022-09-17 09:15 | P.DS_ITS ---
History of Present Illness History of Present Illness Date Patient Seen: 09/17/22 Time Patient Seen: 09:15 Chief complaint: OPB Narrative: Patient is complaining of moderate left shoulder pain this morning. He notes his balance is greatly improved since yesterday morning. His daughter is planning to come up to help him recover. He notes he was urinating frequently throughout the night. He is also gotten a nebulizer treatment this morning, he denies any chest pain or shortness of breath. Overall he is feeling well like to be discharged home with home health. Discharge Providers Provider Date of admission: 09/15/22 09:19 Discharge Date: 09/17/22 Primary care physician: Kurt Shamra MD Consults: 09/15/22 14:29 Consult to Discharge Planning Routine Comment: Consult to Physical Therapy Evaluate & Treat Comment: Physician Instructions: Pendulums only 09/16/22 12:28 Consult to Home Health Routine Comment: Reason For Exam: Evaluate and Treat-RN, PT, Aide Discharge provider: Genoveva Babin PA-C Summary Hospital Course Discharge Diagnosis: Left shoulder osteoarthritis with severe deformity of the glenoid Hospital Course: Operative Date/Time/Diagnoses Date of procedure: 09/15/22 Time of procedure: 12:50 Procedure & Clinicians Procedure: Left reverse total shoulder replacement Same procedure as scheduled: Yes Indications: The patient has had progressively worsening left shoulder pain with radiographic changes consistent with arthritis.? The CT scan has shown severe erosion of the glenoid, necessitating reverse total shoulder replacement.? Non-operative management has failed and the patient has requested total shoulder replacement. The risks, benefits and alternatives to surgery were discussed with the patient prior to proceeding. Risks discussed included, but were not limited to, failure to relieve pain, stiffness, infection, nerve damage, deep venous thrombosis, pulmonary embolism, stroke, coma, heart attack, permanent paralysis and , as well as the potential need for eventual revision of the prosthetic. Surgeon: Vincenzo Murphy Rotary Shear Operator: Marques Ta Click Yes if Unassisted: No Anesthesia Type: General, Peripheral nerve block and Local Operative Notes Findings: Severe osteoarthritis of the left shoulder with significant posterior superior erosion of the glenoid Closure Type: primary Specimen(s): none sent Prosthetic devices, grafts, tissues, transplants, or devices: Implants used in this procedure manufactured by the [employer] and included a [employer] total shoulder system with a 24 mm base plate with a 20 degree full augment and a 30 mm post extension, a single 32 mm nonlocking scr ew was placed in the inferior hole.? Three locking screws measuring 24, 24 and 20 mm were placed in the 3 remaining holes.? There was a 36 mm +4 lateralized/24 glenosphere with a locking screw.? There was a size 10 humeral stem with a 36 neutral cup and a 36+ 3 liner. Applied: implant(s) Estimated Blood Loss (mL): 200 Blood products transfused: none Status at Discharge Cognitive/behavioral status at discharge: at baseline, oriented Overall status at discharge: patient is progressing back to baseline Exam Vital Signs (past 8 hours): - 09/17/22 04:00 09/17/22 08:47 09/17/22 08:00 Temperature 97.7 F 97.1 F L Pulse Rate 65 67 74 Respiratory Rate 14 16 18 Blood Pressure 130/67 108/67 Pulse Oximetry 98 99 96 Oxygen Delivery Method Room Air Oxygen Flow Rate 0 0 Fraction of Inspired Oxygen 21 SaO2/FiO2 Ratio 457 Oxygen Delivery Method Room Air Oxygen Flow Rate 0 Narrative Exam Narrative: Pleasant 87-year-old male, sitting at the side of his bed, eating breakfast, no acute distress. Left upper extremity is in a sling, and decision and dressing are clean, dry, intact. There is no surrounding erythema, induration, or marj pus. Bilateral upper extremity: Motor functions are grossly intact, sensation is grossly intact to light touch. 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 Asthma BCC (basal cell carcinoma) (~06/2022) Easy bruisability Enlarged prostate Hearing impaired HLD (hyperlipidemia) HTN (hypertension) Hypothyroid IBS (irritable bowel syndrome) Knee pain Osteoarthritis Presence of Watchman left atrial appendage closure device Rheumatic fever Shingles outbreak (06/15/22) TIA (transient ischemic attack) Surgical History History of Zana fundoplication Hx of heart artery stent Social History household members: spouse Smoking Status: Former smoker alcohol intake: current Discharge Assessment & Plan Assessment and Plan Assessment: Stable postop day 2 after reverse total shoulder replacement for left shoulder osteoarthritis with significant glenoid deformity. He is stable from the standpoint of pain control. He has a mild post hemorrhagic anemia superimposed upon his pre-existing anemia which should be addressed with ongoing use of the iron he takes at baseline. It is anticipated he will be ready for discharge today. Plan of Treatment: Discharge to home with follow-up in 10-14 days. Discharge prescription for oxycodone has been sent to the pharmacy for him. He has been instructed in the use of low-dose aspirin for DVT prophylaxis. He has been instructed to continue his baseline use of Tylenol and anti-inflammatories for pain control. Discharge Plan Discharge Plan Patient Disposition: Home Health Service Transfer to: Home Health, Other Discharge orders & Medications Prescriptions: New aspirin 81 mg Tablet,Delayed Release (Dr/Ec) 81 mg PO BID Qty: 84 0RF oxycodone 5 mg Tablet 5 mg PO Q4H PRN (Reason: Pain, Moderate (4-6)) Qty: 40 0RF Continued furosemide 40 mg Tablet 40 mg PO DAILY acetaminophen 500 mg Tablet 1,000 mg PO Q6H PRN (Reason: Pain) ferrous sulfate 325 mg (65 mg iron) Tablet 325 mg PO DAILY naproxen sodium [Aleve] 220 mg Capsule 220 mg PO BID PRN (Reason: Pain) metoprolol succinate 25 mg Tablet Extended Release 24 Hr 12.5 mg PO BEDTIME coenzyme Q10 [Co Q-10] 300 mg capsule 150 mg PO DAILY esomeprazole magnesium [address] for susp in packet 20 mg PO DAILY fluticasone propionate [Allergy Relief (fluticasone)] 50 mcg/actuation spray,suspension 2 spray NASAL DAILY PRN (Reason: Allergies) budesonide 0.5 mg/2 mL suspension for nebulization 2 ml INHALATION DAILY levothyroxine 100 mcg capsule 100 mcg PO DAILY beclomethasone dipropionate [Qvar RediHaler] 80 mcg/actuation HFA aerosol breath activated 1 puff INHALATION BID rosuvastatin [Crestor] 5 mg tablet 5 mg PO QPM tamsulosin 0.4 mg capsule 0.8 mg PO QPM Discontinued aspirin [Adeel Low Dose Aspirin] 81 mg tablet,delayed release (DR/EC) 81 mg PO DAILY Follow up/Referrals: Kurt Sharma MD [Primary Care Provider] - Katherine,Vincenzo M, MD [Physician] - As previously scheduled Diet/Activity/Treatments Diet: Diet as Tolerated and Regular Activity: You may use your left hand in front of your body below shoulder level to lift 1-2 lb maximum. Cold/Heat Therapy: You may apply ice to the left shoulder for 15 minutes every hour as needed for pain control. Other treatments: Medications: -Aspirin 81mg twice daily x6 weeks to prevent blood clots. -OTC Tylenol 500 mg 1 tablet every 4 hours as needed for pain/fever. Max 6 tablets per day. -Ibuprofen 400mg 1 tablet every 4 hours as needed for pain/inflammation. Max 2,400mg per day. -Oxycodone 5 mg take 1-2 tablets every 4 hours as needed for moderate-severe pain (narcotic pain medication). -As needed medications: -Ducolax and /or MiraLax as needed for constipation from narcotic pain medications. -Pepcid AC as needed for stomach upset (usually from aspirin or ibuprofen). Dressing/Wound care: -Keep Aquacell dressing in place until postoperative follow-up office visit. -Okay to shower. Keep wound out of direct water stream. No soaking or submerging until all the scabs fall off (approximately 6 weeks). -Please call the office if dressing becomes wet, soiled, or saturated. Activities: -Maintain standard reverse total shoulder protocol: -OK to use your hand in front of your body, below shoulder level; ok to lift 1-2 lb for the first several weeks. Your activities will be advanced by physical therapy. -Continue with sling. -Continue with home exercises as directed by your physical therapist, including Codman/pendulum exercises. -Ice your incision as needed for pain/inflammation/swelling. Protect your skin with a folded pillowcase. -Incentive Spirometer (breathing device from hospital): 5-10xs every hour while awake for the first 1-2 weeks. Follow-up: -Follow-up with your surgeon or PA in the office in 10-14 days after surgery. -Follow-up with your surgeon 6 weeks postoperatively. Call the office if you have chest pain, shortness of breath, significant swelling that will not resolve with elevating, fever over 101?, significantly worsening pain, or are concerned you might need to go to the Emergency Room. [facility]: [phone] Skin/Wound/Dressing Care Report to your healthcare provider any signs of infection, such as:: chills, fever, night sweats, increased pain, unusual drainage and unusual redness Dressing: Leave the dressing in place until your postoperative follow-up. You may shower with the dressing in place. If the central strip becomes saturated with either water or blood, please call the office to have it evaluated. Visit Report/Discharge Packet Instructions: DI for Shoulder Replacement Stand Alone Forms: Surgery Discharge Discharge Data Primary Care Provider: Kurt Sharma VTE Deep Vein Thrombosis/Pulmonary Embolism Present on Admission: No
--- NOTE | 2022-09-17 10:24 | PT.IPTN ---
Current Diagnoses Primary osteoarthritis, left shoulder (09/15/22) Unspecified rotator cuff tear or rupture of left shoulder, not specified as traumatic (09/15/22) Surgery Performed Operation Date: 09/15/22 11:45 Actual Procedures p Total Shoulder Arthroplasty - Reverse(Left) - Vincenzo Murphy MD Physical Therapy Treatment Note M2 PT-IP Current Condition Start: 09/15/22 17:02 Freq: NEEDED Status: Active Protocol: Document 09/17/22 09:54 SP (Rec: 09/17/22 12:01 SP [id number]) Physical Therapy Current Condition Current Condition Evaluation Date 09/15/22 Treatment Diagnosis s/p L TSA reverse; difficulty in walking Onset Date 09/15/22 M3 PT-IP Subjective Start: 09/15/22 17:02 Freq: NEEDED Status: Active Protocol: Document 09/17/22 09:54 SP (Rec: 09/17/22 12:01 SP [id number]) Subjective Physical Therapy Visit Type Type Treatment Note Visit Start Time 09:54 Visit Stop Time 10:24 Total Visit Minutes 30 Notes Family was not present during tx, didn't think could be there until 12, discussed day prior. Number of LINE WORKER Visits 3 Physical Therapy Visit Comments Patient Comments Pt agreeable to working with therapy. Patient Goals return home with family to assist him as needed. Therapy Pain Assessment Pain When Pain Assessed During Mobility Pain Present Pain Present Pain Reported Location Left Shoulder Intensity 4 Scale Used when lifted modified FF/front chest change gown Description Tender,With Movement Pain Behaviors Facial Grimacing,Moaning Pain Management Techniques Distraction,Modification of Treatment,Re-positioning, Timing of Activity with Medications M4 PT-IP Mobility and Gait Start: 09/15/22 17:02 Freq: NEEDED Status: Active Protocol: Document 09/17/22 09:54 SP (Rec: 09/17/22 12:01 SP [id number]) PT-Bed Mobility Assessment Sit to Supine Sit to Supine Standby Assistance Scooting Scooting to Edge of Bed Standby Assistance PT-Transfer Assessment Sit to and From Stand Sit to and from Stand Standby Assistance,Use of Upper Extremities Equipment Transfer Assistive Device Gait Belt,Straight Cane Orthotic/Prosthetic Devices or Brace: Yes Transfers Transfer Destination Chair Transfer Technique pt ambulated using SPC Transfer Ability Level of Assist Standby Assistance,Contact Guard Assistance,Use of Upper Extremities Comments Mobility Comments Pt was inclined supine in bed when arrived. Complete elevated supine>sit useof RUE on bed to self sit, scoot SBA, able to do self with noted little effort. Donned gait belt abdomen. STS from R EOB w / SPC in hand press off bed stand, improved stability into standing, no use legs on bed this tx, gait around room with SPC to chair, able slow descent w/RUE on SPC good control, cued try use can in hand and reach back to slow descend for better safety, verbalized that would be safer . Pt self doff sling ( suggested only unvelcro waist strap so not confusing, agreed ). Discussion self clean under arm and dry completely and use pad/washcloth for sweat absorbent, verbalized understanding. Good recall and demo of seated L UE: hand, wrist, elbow flexion post op ex. Donned sling, cued x1 for proper set up able to complete self. Sit>stand SBA pushing from chair and SPC in RUE. Gait further distance 2 laps around nursing station 424 ft CGA initially>close/arm distance SBA w/ SPC in RUE receiprocal stepping, occasional cues for TA and more forward trunk posture wt shift into advanced LE. Good short distance back and side stepping assess for stability, no LOB holding SPC off ground . Pt returned to room chair, had call light and all needs in reach. Updated communication board SBA transfers/gait w/ SPC with staff/ daughter initially at home can provide. Notified nursing recommending HHPT to work with pt on stability for safety community mobility until can get in with outpatient therapy for L shld. Gait Assessment Gait Gait Assistance Required: Standby Assistance,Contact Guard Assist Distance (Feet) 424 Able to Maintain Weight Bearing Status Yes During Gait Assistive Devices Assistive Device Gait Belt,Straight Cane Orthotic/Prosthetic Devices or Brace: Yes Gait Deviations General Gait Pattern Antalgic,Decreased Stride Length,Decreased Feet Clearance,Narrow Based Gait Factors Limiting Gait Function Factors Limiting Gait Function Difficulty Following Directions,Limited Range of Motion,Poor Balance Comments Gait Comments see mobility comments Stair Climbing Assessment Comments Stair Climbing Comments no stairs need to assess, not entering through garage (4 stairs), now plan enter into front door flush threshold and use seated lift chair to ascend staircase to main floor . PT-Balance Assessment Sitting Balance and Reactions Static Sitting Balance Ability Normal Dynamic Sitting Balance Ability Good Standing Balance and Reactions Static Standing Balance Ability Good Dynamic Standing Balance Ability Good Device Used SPC Functional Assessments Other Functional Tests Performed see mobility comments M5 PT-IP Objective Assessments Start: 09/15/22 17:02 Freq: NEEDED Status: Active Protocol: Document 09/15/22 16:00 AB (Rec: 09/15/22 17:17 AB [id number]) Orientation Orientation/Cognition Level of Alertness Alert Orientation Name Language Function Ability No Deficits Noted Safety Awareness Decreased Safety Awareness Memory Description Short Term Impaired Gross Range of Motion Lower Extremity ROM Assessment Within Functional Limits Strength Lower Extremity Strength Assessment Within Functional Limits Other Assessments Other Other Assessments pt does not have full motor control back on LUE M6 PT-IP Treatment Start: 09/15/22 17:02 Freq: NEEDED Status: Active Protocol: Document 09/17/22 09:54 SP (Rec: 09/17/22 12:01 SP [id number]) Physical Therapy Treatment Exercises Exercises Elbow Flexion/Extension,Wrist ROM,Hand ROM Education Education Provided Precautions,Weight Bearing Status,Post-Op Packet,Safety Other Treatments Other Treatment Performed extra time spent self care sling mgt, cleaning under arm/ dry completely and post op exercises, see mobility comments. M7 PT-IP Assessment and Plan Start: 09/15/22 17:02 Freq: NEEDED Status: Active Protocol: Document 09/17/22 09:54 SP (Rec: 09/17/22 12:01 SP [id number]) PT Summary Assessment and Plan Potential Rehabilitation Potential Fair Status of Condition at Evaluation Evolving Summary Impairments Pain,ROM,Strength,Balance, Coordination,Sensation,Tone, Cognition,Bed Mobility, Transfers,Gait,Activity Tolerance Progress Towards Goals Progressing Toward Goals,Slow Progress due to Pain Assessment Summary SBA for all mobility w/ SPC, able self don/doff sling, good recall precautions and HEP demonstration. Pt is ok return home with / daughter to assist him 24/7 assist available when medically cleared. Recommending HHPT for improvement in stability w/ SPC, stair mgt if he feels wants to be able enter/exit garage enterance. Pt stated set up with outpt but unsure if in Sep or Oct for L shld rehab. Goals Bed Mobility Goal Independent Transfer Goal Independent,Cane Gait Goal Independent,Cane Gait Distance 200 Other Goals improve ambulation without AD 100 ft SBA up/down 4 steps R rail ascending SBA Days to Meet Goals 5 Frequency of Treatment Frequency Of Treatment Twice a Day Treatment Plan Physical Therapy Treatment Plan Bed Mobility Training,Transfer Training,Gait Training, Therapeutic Exercise,Balance Retraining,Post Op Education, Discharge Planning,Hot or Cold Pack,Neuromuscular Re-ed, Coordination Retraining,Manual Therapy Other Recommendations and Next Treatment post op ex, pendulums, gait w/ Focus LRAD/ no AD, balance activities for safet gait back to PLOF no AD. Precautions Shoulder Precautions Sling,PROM,Internal Rotation to Body,No External Rotation, No Abduction,Forward Flexion to 90 degrees,Pendulums Brace sling LUE Other Precautions Per Dr. Murphy note: The patient will be allowed to do pendulum exercises and use his hand in front of his body below shoulder level to lift 1 -2 lb Weight Bearing Status Weight Bearing Status Non-Weight Bearing Allowed Weight Bearing Amount (enter % LUE NWB or #) (%) Recommendations To Nursing Amount of Assist Needed Standby Assistance Discharge Recommendations PT Discharge Recommendations Home with 02/05 Assist Available,Home Health Transportation Needs at Discharge Private Vehicle
--- NOTE | 2022-09-17 10:51 | CM.DPC ---
DCP Cont: Per PT this morning, pt is safe for a discharge home. [facility] set up for pt. D/C summary to be faxed. Pt to discharge home today via family POV. Zandra Martinez RN/KAILAP
[2022-09-17] MEDS: OXYCODONE IR 5 MG TABLET PO (12:25)
--- NOTE | 2022-09-17 15:35 | PC.NURSE ---
Pt is A&Ox3, VSS, afebrile on RA. He reports pain well controlled with scheduled tylenol and prn oxycodone. He is visited by PT this a.m. and is able to demonstrated putting on and taking of shoulder sling, as well as wrist exercises. He is cleared for discharge home by PT and daughter and arrive to transport patient home approximately noon. After lunch he is medicated with prn oxycodone and scheduled tylenol for transport and reviews discharge instructions. He and his acknowledge understanding of medications, site care, activity restrictions, signs and symptoms of infection/complication as well as follow up ortho appointment. He is escorted via w/ch by [employer] for discharge home by private vehicle with his and daughter along with all of his belongings at approximately 1230 pm this afternoon.
== END 2022-09-17 12:30 | disposition home health service (06) | DRG 483 ==
LOC: OR 09:20 → AC 09:21
PROVIDERS: Admitting Provider Orthopaedic Surgery; PCP Internal Medicine; Referring Provider Orthopaedic Surgery; Visit Provider Orthopaedic Surgery
PROC: 0RRK00Z Replacement of Left Shoulder Joint with Reverse Ball and Socket Synthetic Substitute, Open Approach (ICD-10-PCS; CPT 23472; principal; 2022-09-15 11:45)
DX: M19.012 Primary osteoarthritis, left shoulder (principal); D62 Acute posthemorrhagic anemia; M85.812 Other specified disorders of bone density and structure, left shoulder; N40.0 Benign prostatic hyperplasia without lower urinary tract symptoms; I10 Essential (primary) hypertension; K21.9 Gastro-esophageal reflux disease without esophagitis; E78.5 Hyperlipidemia, unspecified; Z20.822 Contact with and (suspected) exposure to COVID-19; Z87.891 Personal history of nicotine dependence
CPT/HCPCS: 64450; 73030; 85014; 85018; 87635; 94640; 97112; 97116; 97162; 97530; 97535; C9803; J0171; J0690; J2405; J2704; J3010

== ENCOUNTER → 2023-11-22 12:17 | Outpatient (CLI) | payer MEDICARE, SELFPAY ==
[2022-09-15 15:57] VITALS: BMI 25.7
--- NOTE | 2023-11-22 12:19 | DI.ECHO.S_ITS ---
[facility]---------+ [facility] +---------+ : : [address] : : : : [id number] : : : : Phone: [phone]+ Echocardiogram Report + + :Name: RAYMON GARCIA Study Date: 11/22/2023 Height: 69 in : :[facility] ReadingLocation: Weight: 178 lb : : Gender: Male BSA: 2.0 m2 : :: 1935 Age: 88 yrs BP: 116/67 mmHg: :Reason For Study: ATRIAL FIBRILLATION : :Ordering Physician: PATY, : :PARIS Performed By: Laina Blackmon : :Referring: PARIS HUSSEIN : + + Interpretation Summary 1) Normal left ventricular thickness, size, wall motion, and systolic function (EF 55-60%). 2) Mildly enlarged right ventricle with normal function. 3) There is mild to moderate tricuspid regurgitation. 4) There is mild mitral regurgitation. 5) No prior Echo available for comparison. Procedure: A two-dimensional transthoracic echocardiogram with color flow and Doppler was performed. The study quality was technically adequate. There is no prior echocardiogram noted for this patient. The patient was in atrial fibrillation with heart rates between 56-75 bpm during the exam. Left Ventricle: Proximal septal thickening is noted. The left ventricle is normal in size and wall thickness. The ejection fraction is estimated to be 55-60%. Diastolic function could not be accurately assessed due to atrial fibrillation. Right Ventricle: The right ventricle is mildly dilated. The right ventricular systolic function is normal. Atria: The left atrium is severely dilated. Right atrial size is normal. There is no Doppler evidence for an interatrial shunt. Mitral Valve: The mitral valve leaflets appear mildly thickened, but open well. There is mild mitral regurgitation. Aortic Valve: The aortic valve is trileaflet. The aortic valve opens well. There is no aortic valve stenosis. There is mild aortic regurgitation. Tricuspid Valve: The tricuspid valve leaflets are thin and pliable. There is mild to moderate tricuspid regurgitation. The right ventricular systolic pressure is estimated to be at least 30 mmHg based on an estimated right atrial pressure of 3 mm Hg. Pulmonic Valve: The pulmonic valve leaflets are thin and pliable; valve motion is normal. There is mild to moderate pulmonic regurgitation. Great Vessels: The aortic root is normal size. The dimensions of the ascending aorta are normal. The IVC is of normal diameter and collapses greater than 50% with a sniff. This suggests a low right atrial pressure of 3 mm Hg. Pericardium/ Pleura There is no pericardial effusion. There is no pleural effusion. MMode/2D Measurements & Calculations LVIDd: 4.6 cm LVOT diam: 2.1 cm LVIDs: 3.2 cm Ao root diam: 3.3 cm FS: 30.4 % asc Aorta Diam: 3.6 cm IVSd: 0.97 cm LVPWd: 1.0 cm LV arana. diameter/BSA (cm/m^2): 2.3 LV sys. diameter/BSA (cm/m^2): 1.6 LA A2 area: 30.6 cm2 RA long axis: 5.5 cm LA A4 area: 27.7 cm2 RA area: 19.9 cm2 LA length (vol): 6.4 cm RA vol: 61.2 ml LA vol: 111.8 ml RA : 31.2 ml/m2 LA vol index: 56.9 ml/m2 IVC diam: 1.8 cm RVD1 (basal): 4.9 cm RVD2 (mid): 3.8 cm TAPSE: 1.7 cm Doppler Measurements & Calculations Ao V2 max: 108.4 cm/sec LVOT Max Vaibhav: 82.6 cm/sec Ao V2 mean: 80.1 cm/sec LV V1 max P.7 mmHg Ao max P.7 mmHg LV V1 VTI: 18.4 cm Ao mean P.8 mmHg IZABELA(I,D): 2.7 cm2 Ao V2 VTI: 23.2 cm IZABELA(V,D): 2.6 cm2 sev ratio: 0.79 IZABELA indexed to BSA (cm^2/m^2): 1.4 MV E max vaibhav: 107.9 cm/sec TR max vaibhav: 263.1 cm/sec MV A max vaibhav: 0.67 cm/sec TR max P.7 mmHg MV E/A: 162.2 PA V2 max: 88.5 cm/sec Med Peak E' Vaibhav: 8.0 cm/sec PA V2 mean: 62.5 cm/sec E/E' med: 13.4 PA mean P.7 mmHg Lat Peak E' Vaibhav: 10.2 cm/sec PA pr(Accel): 46.5 mmHg E/E' lat: 10.6 E/e' average: 12.0 MV dec time: 0.18 sec SV(LVOT): 63.0 ml Reading Physician:05:05 PM
== END ==
PROVIDERS: PCP Internal Medicine; Referring Provider Internal Medicine Cardiovascular Disease; Visit Provider Internal Medicine Cardiovascular Disease
DX: I48.11 Longstanding persistent atrial fibrillation (principal); I08.3 Combined rheumatic disorders of mitral, aortic and tricuspid valves
CPT/HCPCS: 93306

== ENCOUNTER → 2024-03-23 15:05 | Outpatient (CLI) | payer MEDICARE, SELFPAY ==
[2022-09-15 15:57] VITALS: BMI 25.7
--- NOTE | 2024-03-23 15:06 | DI.MRI.S_ITS ---
PROCEDURE: MR CERVICAL SPINE WO CON INDICATIONS: Radiculopathy, cervical region TECHNIQUE: Noncontrast sagittal T1 spin echo and T2 fast spin echo, sagittal STIR, foraminal oblique sagittal T2 fast spin echo, and axial gradient echo or T2 fast spin echo through the cervical spine. COMPARISON: None. FINDINGS: Image quality: Excellent. Alignment and Curvature: There is minimal anterolisthesis seen at C3-C4, with minimal retrolisthesis seen at C4-C5, C5-C6, and C6-C7. Bone Marrow: Marrow demonstrates normal overall signal. Spinal Cord: Visualized spinal cord has normal size and signal. No cerebellar tonsillar herniation. Paraspinous Soft Tissues: No paravertebral masses. Prevertebral soft tissues are normal in thickness. A 1.9 cm right thyroid nodule can be seen, as on series 4, image 44. Focal degenerative change is seen involving the C1-C2 interface anteriorly. C2-C3: The disc height is well-preserved. Loss of disc signal is seen at this level. A mild degree of generalized disc osteophyte complex is seen. Mild facet joint hypertrophy is seen. There is mild left-sided and no right-sided neural foraminal narrowing. Minimal central canal narrowing is seen. C3-C4: The disc height is well-preserved. Loss of disc signal is seen at this level. Mild to moderate disc osteophyte complex is seen, which is slightly eccentric to the right. There is at least moderate right-sided and mild left-sided facet hypertrophy. There is moderate to severe right-sided and at least moderate left-sided neural foraminal narrowing. Minimal central canal narrowing is seen. C4-C5: At least moderate loss of disc height and disc signal can be seen. Moderate disc osteophyte complex is seen, which is eccentric to the left. Uncovertebral joint hypertrophy is seen at this level. At least moderate facet hypertrophy is seen. There is moderate to severe bilateral neural foraminal narrowing seen. Moderate central canal narrowing is seen. There is associated mass effect upon the ventral spinal cord. C5-C6: At least moderate loss of disc height and disc signal can be seen. At least moderate disc osteophyte complex is seen, with a central disc osteophyte protrusion. Uncovertebral joint hypertrophy is seen at this level. Moderate facet joint hypertrophy is seen. Moderate to severe bilateral neural foraminal narrowing can be seen. Mild to moderate central canal narrowing is seen at this level. C6-C7: Moderate loss of disc height is seen. Loss of disc signal is seen. At least moderate disc osteophyte complex is seen. Uncovertebral joint hypertrophy is seen at this level. At least moderate facet hypertrophy is seen. Moderate to severe bilateral neural foraminal narrowing can be seen. Mild central canal narrowing is seen. C7-T1: The disc height is well-preserved. Loss of disc signal is seen at this level. A mild degree of generalized disc osteophyte complex is seen. Mild facet joint hypertrophy is seen. There is at least moderate left-sided and moderate right-sided neural foraminal narrowing. The central canal is widely patent. 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 Right thyroid nodule incidentally noted. When clinically appropriate, please consider a follow-up thyroid ultrasound for further evaluation. Dictated by: Lex Peters M.D. on 03/23/2024 at 16:30 Approved by: Lex Peters M.D. on 03/23/2024 at 16:34
== END ==
PROVIDERS: PCP Internal Medicine; Referring Provider Physical Medicine & Rehabilitation; Visit Provider Physical Medicine & Rehabilitation
DX: M47.22 Other spondylosis with radiculopathy, cervical region (principal); E04.1 Nontoxic single thyroid nodule
CPT/HCPCS: 72141

== ENCOUNTER → 2024-05-24 14:33 | Outpatient (CLI) | payer MEDICARE, SELFPAY ==
[2022-09-15 15:57] VITALS: BMI 25.7
--- NOTE | 2024-05-24 14:34 | DI.US.S_ITS ---
PROCEDURE: US THYROID INDICATIONS: Nontoxic single thyroid nodule TECHNIQUE: Real-time scanning was performed of the thyroid gland, with image documentation. COMPARISON: None. FINDINGS: Thyroid: Right lobe measures 3.8 x 1.4 x 1.5 cm. Left lobe measures 3.1 x 1.2 x 1.1 cm. Isthmus is 0.3 cm thick. Echotexture is homogeneous. No the convincing evidence for a thyroid nodule. IMPRESSION: No convincing evidence a thyroid nodule. Dictated by: Gary Lyon M.D. on 05/25/2024 at 13:59 Approved by: Gary Lyon M.D. on 05/25/2024 at 14:06
== END ==
LOC: US 14:34
PROVIDERS: PCP Internal Medicine; Referring Provider Otolaryngology; Visit Provider Otolaryngology
DX: E04.1 Nontoxic single thyroid nodule (principal)
CPT/HCPCS: 76536